=== PATIENT | male | born 1955 | race African-American/Black ===

== ENCOUNTER 2025-03-06 09:19 | Emergency (ER) | payer OTHER, MEDICAID ==
[~2025-03-06] VITALS: Ht 172.7 cm; Wt 91.0 kg
[~2025-03-06 09:19] MED LIST: APIX5TAB PO; ASPI-1406 PO; ATOR-2 PO; ATOR20TA65 PO; DORZ10DR9 EACHEYE; FOLI-43 PO; GABA-1180 PO; GLIP5TAB22 PO; HYDR100T11 PO; ISOS30TA91 PO; LANTUSUD SUBCUT; LOSA50TA41 PO; METO-539 PO; NPH,100I SUBCUT; OMEP40CA20 PO; PANT40TA51 PO
[2025-03-06 09:23] VITALS: O2SAT 97
[2025-03-06] MEDS ORDERED: SODIUM CHLORIDE 0.9% (SEPSIS BOLUS) IV ONE (09:45)
[2025-03-06] MEDS: ACETAMINOPHEN 325MG SUPP PR ONE (09:45)
[2025-03-06 09:53] LABS: HEMATOCRIT. 39.2 % (42.0-52.0); HEMOGLOBIN. 13.2 g/dL (14.0-18.0); MEAN CORPUSCULAR HEMOGLOBIN 32.2 pg (28.0-32.0); MEAN CORPUSCULAR HGB CONC 33.7 g/dL (31.0-37.0); MEAN CORPUSCULAR VOLUME 95.5 fL (80.0-94.0); MEAN PLATELET VOLUME 7.8 fl (7.4-10.4); PLATELET 142 x1000/uL (130-400); RED CELL DISTRIBUTION WIDTH 15.7 % (11.6-14.6); WHITE BLOOD COUNT 9.2 x1000/uL (4.5-11.0)
[2025-03-06 09:54] LABS: DIFFERENTIAL COMMENT 1
[2025-03-06 10:04] LABS: INR 1.1; PROTHROMBIN TIME 11.3 sec (9.6-11.0)
[2025-03-06 10:09] LABS: CHLORIDE 96 mEq/L (98-107); POTASSIUM 3.2 mEq/L (3.5-5.1); SODIUM 135 mEq/L (136-145)
[2025-03-06 10:10] LABS: CALCIUM 8.9 mg/dL (8.7-10.4); CARBON DIOXIDE 28 mEq/L (21-32)
[2025-03-06 10:15] LABS: CREATININE 2.5 mg/dL (0.6-1.3); GLUCOSE 234 mg/dL (70-105); UREA NITROGEN BLOOD 20 mg/dL (9-23)
[2025-03-06 10:16] LABS: TROPONIN I HIGH SENSITIVITY 41 ng/L (3.0-53)
[2025-03-06 10:17] LABS: ALANINE AMINOTRANSFERASE 24 IU/L (10-49); ASPARTATE AMINOTRANSFERASE 20 IU/L (<34); BILIRUBIN DIRECT 0.3 mg/dL (<=3.0); BILIRUBIN TOTAL 0.9 mg/dL (0.1-1.0); PROTEIN TOTAL 7.5 g/dL (6.0-8.3)
[2025-03-06 10:24] LABS: ANISOCYTOSIS 1+; PLATELET ESTIMATE NORMAL
[2025-03-06] MEDS: SODIUM CHLORIDE 0.9% (SEPSIS BOLUS) IV ONE (10:38)
[2025-03-06] MEDS: PIPERACILLIN/TAZO 3.375G/50ML 50 ML IV ONE (10:38)
[2025-03-06] MEDS: VANCOMYCIN 1G PREMIX 200 ML IV ONE (11:19)
[2025-03-06 12:21] VITALS: TEMP 39.4
[2025-03-06 12:26] VITALS: TEMP 103
[2025-03-06] MEDS: ACETAMINOPHEN 650MG SUPP PR ONE (12:26)
[2025-03-06 13:31] VITALS: BP 135/67; PULSE 110; RESP 24; O2SAT 97
[2025-03-06] MEDS ORDERED: KCL 20MEQ/100ML PREMIX 100 ML IV SCH (14:30)
[2025-03-06] MEDS ORDERED: ONDANSETRON HCL 4MG/2ML INJ IV PRN (14:30)
[2025-03-06] MEDS ORDERED: DOCUSATE SODIUM 100MG CAPSULE PO PRN (14:30)
[2025-03-06] MEDS ORDERED: IPRATROPIUM/ALBUTEROL 0.5-3(2.5)MG/3ML NEB HHN PRN (14:30)
[2025-03-06] MEDS ORDERED: DEXTROSE 50% WATER 50ML SYRINGE IV PRN (14:30)
[2025-03-06] MEDS ORDERED: CLONIDINE 0.1MG TABLET PO PRN (14:30)
[2025-03-06] MEDS ORDERED: ACETAMINOPHEN 325MG TABLET PO PRN ×2 (14:30)
[2025-03-06] MEDS ORDERED: FAMOTIDINE 20MG/2ML VIAL IV SCH (14:30)
[2025-03-06] MEDS ORDERED: BLOOD SUGAR DIAGNOSTIC STRIP TEST SCH (17:00)
[2025-03-06] MEDS ORDERED: INSULIN LISPRO 100 UNITS/ML SUBCUT SCH (18:20)
[2025-03-06] MEDS ORDERED: PIPERACILLIN/TAZO 3.375G/50ML 50 ML IV SCH (22:00)
[2025-03-06] MEDS ORDERED: DILTIAZEM HCL 30MG TABLET PO SCH (22:00)
== END 2025-03-06 13:55 | disposition short-term general hospital (02) ==
LOC: ER 09:19
DX: A41.9 Sepsis, unspecified organism (principal); R65.20 Severe sepsis without septic shock; G93.40 Encephalopathy, unspecified; N18.6 End stage renal disease; Z79.4 Long term (current) use of insulin; Z79.899 Other long term (current) drug therapy; Z79.82 Long term (current) use of aspirin; Z98.890 Other specified postprocedural states
CPT/HCPCS: 99291; 96365; 70450; 96366; 80076; 80048; 83036; 83605; 85025; 85610; 87040; 84484; 36415; 84145; 71045; 93005; 96368; J2543; J3370; J7030

== ENCOUNTER → 2025-03-23 | Emergency (ER) | payer OTHER, MEDICAID ==
[~2025-03-23] VITALS: Ht 185.4 cm; Wt 90.0 kg
[2025-03-23 14:14] VITALS: O2SAT 100
[2025-03-23] MEDS: HYDROCODONE/ACETAMINOPHEN 5/325MG TABLET PO ONE (15:22)
[2025-03-23 15:31] LABS: HEMATOCRIT. 34.7 % (42.0-52.0); HEMOGLOBIN. 11.7 g/dL (14.0-18.0); MEAN CORPUSCULAR HEMOGLOBIN 31.9 pg (28.0-32.0); MEAN CORPUSCULAR HGB CONC 33.7 g/dL (31.0-37.0); MEAN CORPUSCULAR VOLUME 94.6 fL (80.0-94.0); MEAN PLATELET VOLUME 7.4 fl (7.4-10.4); PLATELET 232 x1000/uL (130-400); RED BLOOD CELL COUNT 3.67 mill/uL (4.7-6.1); RED CELL DISTRIBUTION WIDTH 15.9 % (11.6-14.6); WHITE BLOOD COUNT 7.8 x1000/uL (4.5-11.0)
[2025-03-23 15:33] LABS: DIFFERENTIAL COMMENT 1
[2025-03-23] MEDS: ASPIRIN 81MG TABLET PO ONE (15:34)
[2025-03-23 15:48] LABS: CHLORIDE 93 mEq/L (98-107); POTASSIUM 3.6 mEq/L (3.5-5.1); SODIUM 135 mEq/L (136-145)
[2025-03-23 15:49] LABS: CALCIUM 9.5 mg/dL (8.7-10.4); CARBON DIOXIDE 33 mEq/L (21-32)
[2025-03-23 15:54] LABS: GLUCOSE 83 mg/dL (70-105); UREA NITROGEN BLOOD 30 mg/dL (9-23)
[2025-03-23 15:55] LABS: TROPONIN I HIGH SENSITIVITY 22 ng/L (3.0-53)
[2025-03-23 15:57] LABS: CREATININE 4.6 mg/dL (0.6-1.3)
[2025-03-23 16:31] LABS: INR 1.1; PROTHROMBIN TIME 11.4 sec (9.6-11.0)
[2025-03-23] MEDS: MORPHINE SULFATE 4 MG/ML INJ (FOR IV/IM USE) IV ONE (16:54)
[2025-03-23] MEDS: DIPHENHYDRAMINE 50MG/ML VIAL IV ONE (16:55)
[2025-03-23 17:11] LABS: PLATELET ESTIMATE NORMAL
[2025-03-23 19:08] VITALS: BP 141/75; PULSE 74; RESP 10; TEMP 36.8; O2SAT 100
== END | disposition home or self-care (01) ==
LOC: ER 14:51 → EDBEDREQ 14:56
DX: R07.89 Other chest pain (principal); R25.3 Fasciculation; E11.22 Type 2 diabetes mellitus with diabetic chronic kidney disease; E78.5 Hyperlipidemia, unspecified; I12.0 Hypertensive chronic kidney disease with stage 5 chronic kidney disease or end stage renal disease; N18.6 End stage renal disease; Z79.01 Long term (current) use of anticoagulants; I48.91 Unspecified atrial fibrillation; Z79.4 Long term (current) use of insulin; Z79.82 Long term (current) use of aspirin; Z79.84 Long term (current) use of oral hypoglycemic drugs; Z79.899 Other long term (current) drug therapy; Z99.2 Dependence on renal dialysis
CPT/HCPCS: 99285; 96374; 71045; 96375; 80048; 82962; 83880; 85025; 85610; 84484; 36415; 93005; J1200; J2270

== ENCOUNTER 2025-07-02 10:40 | Emergency (ER) | payer OTHER, MEDICAID ==
[~2025-07-02] VITALS: Ht 170.2 cm; Wt 98.0 kg
[2025-07-02 10:41] VITALS: O2SAT 98
[2025-07-02] MEDS ORDERED: ONDANSETRON HCL 4MG/2ML INJ IV ONE (11:00)
[2025-07-02] MEDS: INSULIN REGULAR (HUMULIN R) 1000UNITS/10ML VIAL SUBCUT ONE (11:09)
[2025-07-02 11:50] LABS: BASOPHILS % 0.9 % (0.0-2.0); EOSINOPHILS % 1.7 % (0.0-5.0); HEMATOCRIT. 35.1 % (42.0-52.0); HEMOGLOBIN. 11.7 g/dL (14.0-18.0); LYMPHOCYTES % 12.2 % (20.0-50.0); MEAN PLATELET VOLUME 9.0 fl (7.4-10.4); MONOCYTES % 10.2 % (2.0-8.0); NEUTROPHILS % 75.0 % (40.0-76.0); PLATELET 186 x1000/uL (130-400); RED BLOOD CELL COUNT 3.57 mill/uL (4.7-6.1); RED CELL DISTRIBUTION WIDTH 14.0 % (11.6-14.6)
[2025-07-02 11:53] LABS: CREATININE 3.8 mg/dL (0.6-1.3); TROPONIN I HIGH SENSITIVITY 51 ng/L (3.0-53); UREA NITROGEN BLOOD 35 mg/dL (9-23)
[2025-07-02 11:54] LABS: ASPARTATE AMINOTRANSFERASE 20 IU/L (<34)
[2025-07-02 11:55] LABS: BILIRUBIN DIRECT 0.3 mg/dL (<=3.0); BILIRUBIN TOTAL 1.2 mg/dL (0.1-1.0); PROTEIN TOTAL 6.4 g/dL (6.0-8.3)
[2025-07-02] MEDS: SODIUM CHLORIDE 0.9% 500 ML IV ONE (12:46)
[2025-07-02] MEDS: ONDANSETRON HCL 4MG/2ML INJ IV SCH (13:01)
[2025-07-02] MEDS ORDERED: INSULIN REGULAR (HUMULIN R) 1000UNITS/10ML VIAL SUBCUT ONE (14:00)
[2025-07-02 14:15] VITALS: BP 182/110; PULSE 93; RESP 21; TEMP 36.9; O2SAT 99
== END 2025-07-02 14:18 | disposition short-term general hospital (02) ==
LOC: EDBD → ER 10:40
DX: I51.7 Cardiomegaly (principal); E11.22 Type 2 diabetes mellitus with diabetic chronic kidney disease; E11.65 Type 2 diabetes mellitus with hyperglycemia; N18.6 End stage renal disease; R06.02 Shortness of breath; Z79.01 Long term (current) use of anticoagulants; Z79.4 Long term (current) use of insulin; Z79.82 Long term (current) use of aspirin; Z79.84 Long term (current) use of oral hypoglycemic drugs; Z79.899 Other long term (current) drug therapy; Z91.158 Patient's noncompliance with renal dialysis for other reason; Z98.890 Other specified postprocedural states; Z99.2 Dependence on renal dialysis
CPT/HCPCS: 99285; 96374; 71045; 80076; 80048; 82010; 82962; 83880; 83605; 83735; 85025; 84484; 36415; 93005; J2405; J7040; J1815; A4606